=== PATIENT | male | born 1995 | race Caucasian/White ===

== ENCOUNTER 2019-06-23 18:39 | Emergency (ER) | payer OTHER ==
[~2019-06-23] VITALS: Ht 175.3 cm; Wt 82.5 kg
--- NOTE | 2019-06-23 21:42 | REPVR ---
PROCEDURE INFORMATION: Exam: CT Abdomen And Pelvis Without Contrast Exam date and time: 06/23/2019 9:03 PM Clinical history: 24 years old, male; Abdominal pain; Additional info: Hematuria, flank pain TECHNIQUE: Imaging protocol: Computed tomography of the abdomen and pelvis without contrast. Radiation optimization: All CT scans at this facility use at least one of these dose optimization techniques: automated exposure control; mA and/or kV adjustment per patient size (includes targeted exams where dose is matched to clinical indication); or iterative reconstruction. COMPARISON: No relevant prior studies available. FINDINGS: Limited evaluation without enteric or IV contrast. Lungs: No suspicious mass or airspace process in the visualized lung bases. Liver: Noncontrast liver shows no obvious lesion. Gallbladder and bile ducts: Gallbladder is present and shows no evidence of gallstone. Pancreas: Noncontrast pancreas shows no obvious mass or adjacent fluid. Spleen: Noncontrast spleen shows no obvious focal deformity. Adrenals: Adrenal glands are normal in appearance. Kidneys and ureters: Kidneys show no stone or hydronephrosis. Stomach and bowel: Stomach is distended with ingested material and fluid. No evidence of small bowel obstruction. No evidence of acute diverticulitis. Large volume of stool is seen throughout the colon. Appendix: Normal caliber appendix is identified, with no adjacent inflammation. Intraperitoneal space: No pneumoperitoneum. No abnormal pelvic mass. Vasculature: No aortic aneurysm. Lymph nodes: No enlarged lymph nodes. Bladder: Urinary bladder appears normal. Bones/joints: Bony structures show no acute fracture or destructive process. IMPRESSION: 1. No evidence of renal stone or obstruction. No explanation for flank pain. 2. Large volume of colonic stool suggesting constipation. No evidence of rectal fecal impaction Electronically signed by: Gregg Iglesias On 06/23/2019 21:41:47 PM
[2019-06-23 22:03] LABS: CHLAMYDIA DNA AMPLIFICATION NEGATIVE (NEGATIVE); GC DNA AMPLIFICATION NEGATIVE (NEGATIVE)
[2019-06-23] MEDS ORDERED: cefTRIAXone SOD 1 GM VIAL (J0696) IM ONE (22:15)
[2019-06-23] MEDS ORDERED: CEPHALEXIN 500 MG CAP PO ONE (22:15)
[2019-06-23] MEDS ORDERED: LIDOCAINE 1% SDV 5 ML VIAL DILUENT ONE (22:15)
[2019-06-23] MEDS ORDERED: KEFL500C17 PO (22:29)
[2019-06-23 22:38] VITALS: BP 116/54
== END 2019-06-23 23:12 | disposition home or self-care (01) ==
LOC: M ED 18:39
DX: N30.01 Acute cystitis with hematuria (principal); K59.00 Constipation, unspecified; F17.200 Nicotine dependence, unspecified, uncomplicated
CPT/HCPCS: 74176; 81001; 87088; 87186; 87661; 96372; 99283; J0696

== ENCOUNTER 2019-07-14 22:49 | Emergency (ER) | payer OTHER ==
[~2019-07-14] VITALS: Ht 175.3 cm; Wt 78.6 kg
[~2019-07-14 22:49] MED LIST: KEFL500C17 PO
[2019-07-14] MEDS ORDERED: NS 1,000 ML IV ONE (23:30)
[2019-07-14 23:36] LABS: BILIRUBIN, URINE MANUAL NEGATIVE (NEGATIVE); GLUCOSE, URINE (UA) MANUAL NEGATIVE (NEGATIVE); KETONE, URINE MANUAL NEGATIVE (NEGATIVE); UROBILINOGEN, URINE MANUAL NORMAL (NORMAL)
[2019-07-14 23:45] LABS: BACTERIA, URINE SMALL AMOUNT; HYALINE CAST, URINE NONE SEEN /lpf (0-1); RBC, URINE TNTC /hpf (0-3); SQUAMOUS EPITHELIAL CELL URINE NONE SEEN /hpf (SMALL AMT); TRANSITIONAL EPI CELLS, URINE SMALL AMOUNT /hpf
[2019-07-14 23:46] LABS: MUCUS, URINE SMALL AMOUNT (NEGATIVE)
[2019-07-14 23:51] LABS: BASO % 0.4 % (0.0-1.0); EOS # 0.2 10^3/uL (0.0-0.5); EOS % 2.8 % (0.0-3.0); HEMATOCRIT 39.9 % (42.0-52.0); HEMOGLOBIN 13.3 g/dl (13.5-17.5); LYMPH # 1.9 10^3/uL (1.5-5.0); MEAN CORPUSCULAR HEMOGLOBIN 30.2 pg (27.0-33.0); MEAN CORPUSCULAR HGB CONC 33.3 g/dl (32.0-36.5); MEAN CORPUSCULAR VOLUME 90.5 fl (80.0-96.0); MONO # 0.6 10^3/uL (0.0-0.8); NEUTROPHILS # 5.5 10^3/uL (1.5-8.5); NEUTROPHILS % 66.3 % (36.0-66.0); PLATELET COUNT, AUTOMATED 230 10^3/uL (150-450); RED BLOOD COUNT 4.41 10^6/uL (4.30-6.10); WHITE BLOOD COUNT 8.3 10^3/uL (4.0-10.0)
[2019-07-15 00:14] LABS: BLOOD UREA NITROGEN 18 MG/DL (7-18); CALCIUM LEVEL 8.3 MG/DL (8.5-10.1); CARBON DIOXIDE LEVEL 30 MEQ/L (21-32); CHLORIDE LEVEL 105 MEQ/L (98-107); CREATININE FOR GFR 1.13 MG/DL (0.70-1.30); GLOMERULAR FILTRATION RATE > 60.0 (>60); GLUCOSE, FASTING 123 MG/DL (70-100); SODIUM LEVEL 141 MEQ/L (136-145)
[2019-07-15] MEDS ORDERED: ISOVUE-370 76% 100ML VIAL (Q9967) As Ordered ONE (00:23)
--- NOTE | 2019-07-15 00:48 | REPVR ---
PROCEDURE INFORMATION: Exam: CT Abdomen And Pelvis With Contrast Exam date and time: 07/15/2019 12:37 AM Clinical history: 24 years old, male; Other: hematuria; Additional Info: renal eval for hematuria TECHNIQUE: Imaging protocol: Computed tomography of the abdomen and pelvis with intravenous contrast. Radiation optimization: All CT scans at this facility use at least one of these dose optimization techniques: automated exposure control; mA and/or kV adjustment per patient size (includes targeted exams where dose is matched to clinical indication); or iterative reconstruction. Contrast material: ISOVUE 370; Contrast volume: 100 ml; Contrast route: IV; COMPARISON: CT ABD PELVIS W/O CONTRAST 06/23/2019 8:59 PM FINDINGS: Liver: Normal. No mass. Gallbladder and bile ducts: Normal. No calcified stones. No ductal dilation. Pancreas: Normal. No ductal dilation. Spleen: Normal. No splenomegaly. Adrenals: Normal. No mass. Kidneys and ureters: Normal. No hydronephrosis. Nephrograms are normal. No mass lesions. No loculated collections. Stomach and bowel: Copious stool in the colon. No abnormal bowel dilatation. No abnormal bowel wall thickening. Negative for colonic diverticulitis. Appendix: Appendix is normal. Intraperitoneal space: Small fluid in the pelvis. Vasculature: Unremarkable. No abdominal aortic aneurysm. Lymph nodes: Unremarkable. No enlarged lymph nodes. Bladder: Diffuse thickening of the bladder. Reproductive: Prostate is normal in size. Bones/joints: Unremarkable. No acute fracture. Soft tissues: Unremarkable. IMPRESSION: 1. Diffuse thickening of the bladder. Consistent with cystitis. 2. Small free fluid in the pelvis. 3. Copious stool in the colon. Electronically signed by: Tushar Leigh On 07/15/2019 00:47:58 AM
[2019-07-15] MEDS ORDERED: cefTRIAXone SOD 1 GM in D5W MINI-BAG PLUS 50 ML IV ONE (01:00)
[2019-07-15] MEDS ORDERED: BACT800T5 PO (02:00)
[2019-07-15 02:10] VITALS: BP 115/72
[2019-07-15 04:43] LABS: CHLAMYDIA DNA AMPLIFICATION NEGATIVE (NEGATIVE); GC DNA AMPLIFICATION NEGATIVE (NEGATIVE)
--- NOTE | 2019-07-15 07:08 | ED PDOC ---
Post-Departure Follow-Up radiology rpeor tfaxed to [facility] Emily Hoff MD Jul 15, 2019 07:08
== END 2019-07-15 02:12 | disposition home or self-care (01) ==
LOC: M ED 22:49
DX: N30.81 Other cystitis with hematuria (principal); N48.89 Other specified disorders of penis; K40.90 Unilateral inguinal hernia, without obstruction or gangrene, not specified as recurrent; Z87.710 Personal history of (corrected) hypospadias
CPT/HCPCS: 74177; 80048; 81000; 85025; 87088; 87186; 87491; 87591; 96365; 99284; J0696; Q9967

== ENCOUNTER 2021-04-03 03:58 | Emergency (ER) | payer OTHER ==
[~2021-04-03] VITALS: Ht 175.3 cm; Wt 81.4 kg
[~2021-04-03 03:58] MED LIST changes: +BACT800T5 PO
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
[2021-04-03 06:42] LABS: HEMATOCRIT 44.2 % (42.0-52.0); HEMOGLOBIN 15.1 g/dl (13.5-17.5); MEAN CORPUSCULAR HEMOGLOBIN 30.3 pg (27.0-33.0); MEAN CORPUSCULAR HGB CONC 34.2 g/dl (32.0-36.5); MEAN CORPUSCULAR VOLUME 88.8 fl (80.0-96.0); PLATELET COUNT, AUTOMATED 269 10^3/uL (150-450); RED BLOOD COUNT 4.98 10^6/uL (4.30-6.10); WHITE BLOOD COUNT 7.1 10^3/uL (4.0-10.0)
[2021-04-03 07:11] LABS: ACETAMINOPHEN LEVEL < 2.0 UG/ML (10.0-30.0); ALBUMIN 4.6 GM/DL (3.2-5.2); ALT/SGPT 56 U/L (12-78); BILIRUBIN,DIRECT 0.1 MG/DL (0.0-0.2); BILIRUBIN,TOTAL 0.2 MG/DL (0.2-1.0); BLOOD UREA NITROGEN 13 MG/DL (7-18); CALCIUM LEVEL 8.9 MG/DL (8.5-10.1); CARBON DIOXIDE LEVEL 27 MEQ/L (21-32); CHLORIDE LEVEL 111 MEQ/L (98-107); CREATININE FOR GFR 1.06 MG/DL (0.70-1.30); ETHYL ALCOHOL (ETHANOL) 0.177 % (0.000-0.010); GLOMERULAR FILTRATION RATE > 60.0 (>60); GLUCOSE, FASTING 98 MG/DL (70-100); POTASSIUM SERUM 4.6 MEQ/L (3.5-5.1); SALICYLATE LEVEL < 1.7 MG/DL (5.0-30.0); SODIUM LEVEL 144 MEQ/L (136-145); TOTAL PROTEIN 7.6 GM/DL (6.4-8.2)
[2021-04-03 07:59] LABS: AMPHETAMINES LEVEL URINE NEGATIVE (NEGATIVE); BARBITURATES URINE NEGATIVE (NEGATIVE); BENZODIAZEPINES URINE NEGATIVE (NEGATIVE); CANNABINOIDS URINE NEGATIVE (NEGATIVE); COCAINE METABOLITE URINE NEGATIVE (NEGATIVE); METHADONE URINE NEGATIVE (NEGATIVE); OPIATES URINE NEGATIVE (NEGATIVE); PHENCYCLIDINE URINE NEGATIVE (NEGATIVE)
[2021-04-03 08:41] VITALS: BP 125/72
== END 2021-04-03 08:43 | disposition home or self-care (01) ==
LOC: M ED 03:58
DX: S06.0X0A Concussion without loss of consciousness, initial encounter (principal); Y04.0XXA Assault by unarmed brawl or fight, initial encounter; Y92.410 Unspecified street and highway as the place of occurrence of the external cause